=== PATIENT | male | born 1980 | race African-American/Black ===

== ENCOUNTER 2017-12-04 01:46 | Inpatient (IN) | payer OTHER ==
[2017-12-04] MEDS ORDERED: Sodium Chloride 0.9% 10 ML Syringe FLUSH PRN (01:50)
[2017-12-04] MEDS ORDERED: Sodium Chloride 0.9% 2.5 ML Syringe FLUSH PRN (01:50)
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
[2017-12-04 02:37] LABS: CHLORIDE,CL 103 mmol/L (98-107); SODIUM,NA 139 mmol/L (136-148)
[2017-12-04] MEDS ORDERED: Diphtheria,Pertussis(Acell),Tetanus Vaccine 0.5 ML Syringe IM ONE (02:53)
[2017-12-04] MEDS ORDERED: Lidocaine 1% 50 ML MDV ONE (03:54)
[2017-12-04] MEDS ORDERED: Succinylcholine 200 MG/10 ML MDV ONE (04:00)
[2017-12-04] MEDS ORDERED: Lidocaine 2% 100 MG/5 ML Syringe ONE (04:00)
[2017-12-04] MEDS ORDERED: Etomidate 2 MG/ML 20 ML SDV IVPUSH ONE ×2 (04:00→04:07)
[2017-12-04] MEDS ORDERED: Rocuronium 50 MG/5 ML Vial ONE (04:00)
[2017-12-04] MEDS ORDERED: Lidocaine 2% 100 MG/5 ML Syringe IVPUSH ONE (04:05)
[2017-12-04] MEDS ORDERED: Rocuronium 50 MG/5 ML Vial IVPUSH ONE (04:07)
[2017-12-04] MEDS ORDERED: Succinylcholine 200 MG/10 ML MDV IV ONE (04:07)
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
--- NOTE | 2017-12-05 15:07 | CR ---
EXAM DATE: 12/04/17 PATIENT'S AGE: 37 Patient: SUSY KIRAN Facility: [place], [place] Site . Site : 06/27/1988 Study: XRay Pelvis [id number]/10/2018 2:16:48 AM Ordering Physician: Celine Copeland Final Report: Indication: Found down Technique: A single frontal view of the pelvis Comparison: None available Findings/Impression: Bones: Overlying backboard, partially obscuring bony detail. No displaced fracture seen. No dislocation. Joint spaces: Unremarkable. Soft tissues: Unremarkable. Dictated by Kris Coronado MD @ 12/04/2017 2:33:25 AM Dictated by: Kris Coronado MD @ 12/04/2017 02:33:30 (Electronic Signature) Report Signed by Proxy. [facility] PARTNERSGertrude
--- NOTE | 2017-12-05 15:08 | CR ---
EXAM DATE: 12/04/17 PATIENT'S AGE: 37 Patient: SUSY KIRAN Facility: [place], [place] Site . Site : 06/27/1988 Study: XRay Chest [id number]/10/2018 2:17:34 AM Ordering Physician: Celine Copeland Final Report: Indication: Found down. Technique: A single view of the chest. Comparison: None Findings/Impression: Cardiovascular and mediastinum: Enlarged cardiac silhouette which could be partially related to the portable technique. An unfolded aorta. Lungs and pleural spaces: Lungs are clear. No sign of infiltrate or mass. No sign of pleural effusion. No pneumothorax. Bones and soft tissues: No significant findings. Dictated by Kris Coronado MD @ 12/04/2017 2:34:57 AM Dictated by: Kris Coronado MD @ 12/04/2017 02:35:04 (Electronic Signature) Report Signed by Proxy. THU
--- NOTE | 2017-12-05 15:09 | CT ---
EXAM DATE: 12/04/17 PATIENT'S AGE: 37 Patient: SUSY KIRAN Facility: [place], [place] Site . Site : 06/27/1988 Study: CT Head [id number]/10/2018 2:18:11 AM Ordering Physician: Celine Copeland Final Report: INDICATION: Unconscious. Pain. TECHNIQUE: CT head without contrast. COMPARISON: None available FINDINGS: The ventricles and sulci are within normal limits for the patient`s age. There is no mass effect or midline shift. There is a low density focus in the right morton radiata and a small low-density focus in the superior aspect of the left basal ganglia, suggestive of chronic lacunar infarcts. There is no loss of wilson- white differentiation. There is no evidence of a gross acute intracranial hemorrhage. Physiologic basal ganglia calcifications are seen. No acute calvarial fracture is seen. There is left facial and periorbital soft tissue swelling and hematoma, as well as posterior scalp swelling. The visualized paranasal sinuses and mastoid air cells are clear. The visualized orbits are within normal limits. IMPRESSION: No evidence of a gross acute intracranial hemorrhage, mass effect or loss of wilson-white differentiation. Chronic lacunar infarcts, atypical in a patient of this age. Correlate clinically. Dictated by Kris Coronado MD @ 12/04/2017 2:26:54 AM Please note that all CT scans at this facility use dose modulation, iterative reconstruction, and/or weight-based dosing when appropriate to reduce radiation dose to as low as reasonably achievable. Dictated by: Kris Coronado MD @ 12/04/2017 02:26:58 (Electronic Signature) Report Signed by Proxy. MTDD
--- NOTE | 2017-12-05 15:10 | CT ---
EXAM DATE: 12/04/17 PATIENT'S AGE: 37 Patient: SUSY KIRAN Facility: [place], [place] Site . Site : 06/27/1988 Study: CT Spine Cervical [id number]/10/2018 2:18:30 AM Ordering Physician: Celine Copeland Final Report: INDICATION: Found down TECHNIQUE: CT cervical spine without contrast. COMPARISON: None available FINDINGS: The cervical spine alignment is within normal limits. The craniocervical and atlantoaxial alignments are near anatomical. There is no evidence of an acute cervical spine fracture. There is no significant precervical soft tissue swelling. IMPRESSION: No evidence of an acute cervical spine fracture. Dictated by Kris Coronado MD @ 12/04/2017 2:49:16 AM Please note that all CT scans at this facility use dose modulation, iterative reconstruction, and/or weight-based dosing when appropriate to reduce radiation dose to as low as reasonably achievable. Dictated by: Kris Coronado MD @ 12/04/2017 02:49:21 (Electronic Signature) Report Signed by Proxy. [facility]
--- NOTE | 2017-12-05 15:11 | CR ---
EXAM DATE: 12/04/17 PATIENT'S AGE: 37 Patient: RIKA JACKSON Facility: [place], [place] Site . Site : 1980 Study: XRay Chest [id number]/10/2018 4:44:19 AM Ordering Physician: Elen Cramer Final Report: Indication: Post intubation Technique: Chest 1 view Comparison: 12/04/2017 at 1:46 a.m. Findings/Impression: An endotracheal tube with the tip at the level of the clavicular heads. A nasogastric tube with the tip coiled in the stomach. Grossly stable cardiomediastinal silhouette. Mild left infrahilar subsegmental atelectasis. No gross consolidation or pleural effusions. Stable osseous structures. Dictated by Kris Coronado MD @ 12/04/2017 5:50:24 AM Dictated by: Kris Coronado MD @ 12/04/2017 05:50:28 (Electronic Signature) Report Signed by Proxy. THU
== END 2017-12-04 04:13 | DRG 605 ==
LOC: MW.ED 01:46 → MW.ICU 02:44
PROVIDERS: ADMIT Surgery; ATTEND Surgery
DX: S00.83XA Contusion of other part of head, initial encounter (principal); S06.0X9A Concussion with loss of consciousness of unspecified duration, initial encounter; S00.03XA Contusion of scalp, initial encounter; S00.431A Contusion of right ear, initial encounter; Y04.0XXA Assault by unarmed brawl or fight, initial encounter; R41.82 Altered mental status, unspecified; F10.129 Alcohol abuse with intoxication, unspecified
CPT/HCPCS: 36415; 70450; 70450-26; 71045; 71045-26; 72125; 72125-26; 72170; 72170-26; 80053; 80305; 81001; 83690; 84484; 85025; 85610; 90471; 90715; 93005; 96374; 96375; 99284; 99291; G0480; J0330

== ENCOUNTER 2017-12-21 08:40 | Emergency (ER) | payer SELFPAY ==
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
--- NOTE | 2017-12-21 09:53 | US ---
EXAMINATION: Right upper extremity duplex ultrasound HISTORY: Swelling COMPARISON: None TECHNIQUE: Grayscale, color Doppler, spectral Doppler imaging obtained of the right upper extremity. FINDINGS: Right jugular, subclavian, axillary, basilic, brachial, radial, and ulnar veins appear buckner nt with good color and spectral flow. There is a noncompressible thrombus within a superficial cephal ic vein of the forearm. IMPRESSION: 1. No evidence of a right upper extremity DVT. 2. Noncompressible thrombus within the cephalic vein of the forearm.
== END 2017-12-21 10:23 | disposition home or self-care (01) ==
LOC: MW.ED 08:40
DX: I80.8 Phlebitis and thrombophlebitis of other sites (principal); Z79.899 Other long term (current) drug therapy
CPT/HCPCS: 93971-26-RT; 93971-RT; 99283-25